=== PATIENT | female | born 1955 | race Caucasian/White ===

== ENCOUNTER 2023-05-29 08:01 | Emergency (ER) | payer MEDICARE, MEDICAID, SELFPAY ==
[2023-05-29 08:11] VITALS: BP 155/67; PULSE 103; RESP 16; TEMP 36.3; O2SAT 99
[2023-05-29 08:16] VITALS: BP 155/67; PULSE 103; RESP 16; TEMP 36.3; O2SAT 99
--- NOTE | 2023-05-29 08:22 | ED.URI ---
HPI - URI/Sore Throat General Chief Complaint: Upper Respiratory Infection Stated Complaint: sinus infection/right ear Time Seen by Provider: 05/29/23 08:15 Source: patient Mode of arrival: ambulatory Limitations: no limitations History of Present Illness HPI Narrative: 68-year-old female presents with complaint right ear pain the past 2-3 days. Patient reports nasal congestion, sinus pressure getting progressively worse past 3-4 weeks. Patient and COVID April 19. States she has been sick and on since then. Has not seen her primary care physician these complaints. No chest pain or shortness of breath. Has been taking [id number] cold medicines with little relief. All systems reviewed and negative except as noted above. Related Data Home Medications Medication Instructions Recorded Confirmed Singulair 05/29/23 pravastatin 05/29/23 tramadol 05/29/23 Allergies Allergy/AdvReac Type Severity Reaction Status Date / Time acetaminophen Allergy Unknown Verified 05/29/23 08:15 [From Darvocet-N] propoxyphene Allergy Unknown Verified 05/29/23 08:15 [From Darvocet-N] Review of Systems Review of Systems: CONSTITUTIONAL: Denies fever, chills, or sweats. Reports fatigue. EYES: Denies visual changes, redness, or discharge. ENT: Reports rhinorrhea, congestion, sinus pressure. Denies sore throat reports right ear pain CARDIOVASCULAR: Denies chest pain, palpitations, or edema. RESPIRATORY: Denies cough or dyspnea. GASTROINTESTINAL: Denies abdominal pain, nausea, vomiting, or diarrhea. GENITOURINARY: Denies dysuria or hematuria. SKIN: Denies rash or itching. MUSCULOSKELETAL: Denies back pain, joint pain, or myalgia. NEUROLOGIC: Denies headache, numbness, or weakness. PSYCHIATRIC: Denies anxiety or depression. All other systems reviewed are negative, except as documented in HPI. PMFSH Comments At time of signature, agree with nursing past medical, surgical, social and family history. There is no relevant family history pertinent to the presenting complaint. Exam Narrative: GENERAL: This is a well-nourished, well-developed patient, in no apparent distress. HEAD: normocephalic, atraumatic. EYES: PERRL. Sclera clear/white. Vision is grossly intact. EARS: External ears normal, auditory canals clear and without drainage, fluid bilateral TMs without erythema or perforation. Hearing grossly intact. NOSE: External nose normal with clear nasal drainage, moderate congestion, erythema and swelling to bilateral nares. Maxillary sinus tenderness on palpation. THROAT: Mucous membranes moist, erythema postnasal drainage. NECK: Neck supple, non-tender without lymphadenopathy, masses or thyromegaly. CARDIOVASCULAR: Regular rate and rhythm without murmurs, gallops, or rubs. RESPIRATORY: Clear to auscultation. Breath sounds equal bilaterally. No wheezes, rales, or rhonchi. SKIN: warm, Dry, intact with no suspicious lesions or rash, good texture and turgor. NEURO: awake, alert, and oriented to person, place and time. There were no obvious focal neurologic abnormalities. EXTREMITIES: No joint tenderness, effusion, or edema noted. Course Course Level of Care: Express Care Visit Vital Signs Vital signs: Vital Signs Temperature 36.3 C L 05/29/23 08:11 Pulse Rate 103 H 05/29/23 08:11 Respiratory Rate 16 05/29/23 08:11 Blood Pressure 155/67 H 05/29/23 08:11 Pulse Oximetry 99 05/29/23 08:11 Oxygen Delivery Room Air 05/29/23 08:11 Temperature 36.3 C L 05/29/23 08:16 Pulse Rate 103 H 05/29/23 08:16 Respiratory Rate 16 05/29/23 08:16 Blood Pressure 155/67 H 05/29/23 08:16 Pulse Oximetry 99 05/29/23 08:16 Oxygen Delivery Room Air 05/29/23 08:16 Reviewed MDM - URI/Sore Throat MDM Narrative Medical decision making narrative: Patient is aware of diagnosis, understands and agrees to treatment plan. Anticipatory guidance given. Patient agrees to follow-up as directed
== END 2023-05-29 08:33 | disposition home or self-care (01) ==
PROVIDERS: Emergency Provider Nurse Practitioner Family; PCP Nurse Practitioner Family
DX: J01.90 Acute sinusitis, unspecified (principal); Z86.16 Personal history of COVID-19
CPT/HCPCS: 99213; G0463